=== PATIENT | female | born 1965 | race Caucasian/White ===

== ENCOUNTER 2016-11-28 17:27 | Emergency (ER) | payer BC ==
[2016-11-28 17:59] VITALS: BP 119/74
[2016-11-28] MEDS ORDERED: Acetaminophen/HYDROcodone 325-5 MG Tab PO ONE (19:14)
[2016-11-28] MEDS ORDERED: HYDROmorphone 1 MG/ML Syringe IM ONE (20:42)
--- NOTE | 2016-11-28 20:45 | EDM.PDOC ---
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 Pain is now getting worse. No further injury. Not taking anything for pain at this time. "tylenol does not work, advil upsets my stomach". The pain does radiate down the R arm clear to the wrist, pain is worse with motion RUE. Hx of 3" buldging discs" in her neck. 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 Musculoskeletal History: right radial fx and right middle finger fx, bulging disks to C4-6 and L4-6 Other Neuro History: states pinched nerve in Left shoulder Other Immunologic History: lymph node removal at back of neck - Past Surgical History Respiratory Surgical History: Reports: None Neurological Surgical History: Reports: None Musculoskeletal Surgical History: Reports: None Other Oncologic Surgeries/Procedures: breast tissue removed 1989 Social & Family History - Tobacco Use Smoking Status *Q: Current Every Day Smoker Years of Tobacco use: 38 Packs/Tins Daily: 0.5 Used Tobacco, but Quit: No Second Hand Smoke Exposure: No - Caffeine Use Caffeine Use: Reports: Coffee, Soda - Alcohol Use Days Per Week of Alcohol Use: 0 - Recreational Drug Use Recreational Drug Use: Yes Drug Use in Last 12 Months: Yes Recreational Drug Type: Reports: Marijuana/Hashish Recreational Drug Use Frequency: Daily Recreational Drug Last Use: last night Review of Systems - Review of Systems Review Of Systems: See Below Constitutional: Denies: Fever Mouth/Throat: Reports: No Symptoms Respiratory: Denies: Shortness of Breath, Pleuritic Chest Pain Cardiovascular: Denies: Chest Pain GI/Abdominal: Denies: Abdominal Pain, Vomiting Musculoskeletal: Reports: Neck Pain (patient has some chronic neck pain), Shoulder Pain, Arm Pain Skin: Reports: No Symptoms Neurological: Reports: Numbness (occasional numbness RUE) ED EXAM, GENERAL - Physical Exam Exam: See Below General Appearance: Alert, Moderate Distress, Other (very weepy at time of my exam) Head: Atraumatic. No: Facial Swelling Neck: Supple, Other (mild tenderness bilat post. base) Respiratory/Chest: No Respiratory Distress, Lungs Clear Cardiovascular: Regular Rate, Rhythm Back Exam: Other (there is tenderness of the R upper back) Extremities: Limited Range of Motion (R shoulder), Other (no visible swelling or deformity of the shoulder or elbow, pain with motion, tender anterior and posteriorly). No: Joint Swelling, Increased Warmth, Redness Neurological: No Motor/Sensory Deficits Skin Exam: Warm, Dry, Normal Color Course - Vital Signs Last Recorded V/S: Last Vital Signs Temp 97.8 F 11/28/16 17:44 Pulse 80 11/28/16 17:44 Resp 16 11/28/16 17:44 BP 119/74 11/28/16 17:44 Pulse Ox 100 11/28/16 17:44 - Orders/Labs/Meds Orders: Active Orders 24 hr Category Date Time Status Shoulder Comp Rt [CR] Stat Exams 11/28/16 19:09 Taken Meds: Medications Discontinued Medications Generic Name Dose Route Start Last Admin Trade Name Freq PRN Reason Stop Dose Admin Hydrocodone Bitart/Acetaminophen 1 tab 11/28/16 19:14 11/28/16 19:21 [place] 325-5 Mg PO 11/28/16 19:15 1 tab ONETIME ONE Administration Hydromorphone HCl 1 mg 11/28/16 20:42 11/28/16 20:49 Dilaudid IM 11/28/16 20:43 1 mg ONETIME ONE Administration - Re-Assessments/Exams Free Text/Narrative Re-Assessment/Exam: 11/28/16 21:56 X rays of the shoulder are normal. We gave her a hydrocodone intially for pain. She states that did not help, only slightly if anything. I considered giving her a 2nd hydrocodone or a percocet. She request something IM due to severity of pain, states she has not been able to sleep due to the pain. OF concern she also states she has not been taking anything for the pain for stated reasons. I have offered a course of prednisone. She does not want that , states steroids make her "go crazy". I have offer to write an order for physical therapy. She does not want that either, wants to wait until she sees Dr Kelly, Discharge instr. as documented. Departure - Departure Time of Disposition: 21:00 Disposition: Home, Self-Care 01 Condition: Fair Clinical Impression: Cervical radiculopathy Shoulder pain Qualifiers: Chronicity: chronic Laterality: right Qualified Code(s): M25.511 - Pain in right shoulder - Discharge Information Prescriptions: Naproxen [Naprosyn] 500 mg PO Q12HR #14 tablet oxyCODONE HCl/Acetaminophen [Percocet 5-325 mg Tablet] 1 each PO TID PRN #20 tablet PRN Reason: Pain Instructions: Shoulder Pain, Cervical Radiculopathy, [id number] Referrals: Sandra Fernández, [Primary Care Provider] - Forms: ED Department Discharge Additional Instructions: rest arm, no heavy lifting, alternate ice and heat to upper back and shoulder as needed, that should give some relief. Naprosyn 500 mg twice daily for pain and inflamation. You may take tylenol in addition up to 3 times daily for extra pain relief or percocet if needed for severe pain not relieved by naprosyn and tylenol. Do not take tylenol and percocet at the same time. Do not drive or work when taking percocet. See Dr Kelly as planned. - My Orders Last 24 Hours: My Active Orders 11/28/16 19:09 Shoulder Comp Rt [CR] Stat - Assessment/Plan Last 24 Hours: My Active Orders 11/28/16 19:09 Shoulder Comp Rt [CR] Stat
--- NOTE | 2016-11-29 08:38 | CR ---
Right shoulder: Three views of the right shoulder were obtained. Comparison: No previous shoulder exam. Glenohumeral joint and acromioclavicular joint appear within normal limits. No fracture, dislocation or other bony abnormality is seen. Impression: 1. No abnormality is identified on three-view right shoulder study. Diagnostic code #1
== END 2016-11-28 21:32 | disposition home or self-care (01) ==
LOC: JD.ED 17:27
DX: M54.12 Radiculopathy, cervical region (principal); M25.511 Pain in right shoulder; J44.9 Chronic obstructive pulmonary disease, unspecified; F17.210 Nicotine dependence, cigarettes, uncomplicated; Z88.6 Allergy status to analgesic agent; Z88.8 Allergy status to other drugs, medicaments and biological substances
CPT/HCPCS: 73030; 96374; 99284; A9270; J1170; 99283

== ENCOUNTER 2017-01-31 16:56 | Emergency (ER) | payer BC ==
[2017-01-31 17:09] VITALS: BP 128/76
--- NOTE | 2017-01-31 19:00 | EDM.PDOC ---
ED HPI GENERAL MEDICAL PROBLEM - General Chief Complaint: Allergic Reaction Stated Complaint: ALLERGIC REACTION TO MEDICATION Time Seen by Provider: 01/31/17 17:18 Source of Information: Reports: Patient, RN Notes Reviewed History Limitations: Reports: No Limitations - History of Present Illness INITIAL COMMENTS - FREE TEXT/NARRATIVE: The patient states that she has bilateral lower extremity peripheral neuropathy , for which she was prescribed gabapentin 300 mg TID for the past week, per Dr. Fernández. The prescription was written for the patient to increase the dose to 600 mg TID today. The patient states that she took one dose of 600 mg around 13 :00 this afternoon, then around 16:00 developed a blotchy face, itchiness, welts on her back, and a lump to her lower left leg. She called the office of Dr. Fernández around 16:30, spoke to a nurse, and was told to come to the ED. The patient states that she was experiencing "high anxiety" at the time. Here in the ED, her symptoms have completely resolved, without treatment. The patient states that she has been on Lyrica in the past, which worked well for her neuropathy, but that Dr. Fernández will not prescribe it for for her "because it's a controlled substance". The patient notes incidentally that she has been drinking a lot of water recently due to excessive thirst, and that she has been urinating a lot. She does not have a known history of diabetes. 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: Musculoskeletal History: Reports: Arthritis, Fracture (right radius, right 3rd finger), Other (See Below) (herniated disks C4-6 and L4-6) Neurological History: Reports: Neuropathy, Peripheral Psychiatric History: Reports: Anxiety, Depression - Infectious Disease History Infectious Disease History: Reports: Chicken Pox - Past Surgical History HEENT Surgical History: Reports: Oral Surgery (Dental extractions) GI Surgical History: Reports: Cholecystectomy Female Surgical History: Reports: Hysterectomy, Salpingo-Oophorectomy, Tubal Ligation Oncologic Surgical History: Reports: Biopsy of Breast (1989), Other (See Below) (Cervical lymph node biopsy) Social & Family History - Tobacco Use Smoking Status *Q: Current Every Day Smoker Years of Tobacco use: 32 Packs/Tins Daily: 0.5 Packs/Tins Daily Comment: Down from 1 ppd - Caffeine Use Caffeine Use: Reports: Coffee, Soda - Alcohol Use Alcohol Use History: No Days Per Week of Alcohol Use: 0 - Recreational Drug Use Recreational Drug Use: Yes Drug Use in Last 12 Months: Yes Recreational Drug Type: Reports: Marijuana/Hashish Recreational Drug Use Frequency: Daily - Living Situation & Occupation Living situation: Reports: (), Alone Occupation: Unemployed ED ROS ALLERGIC REACTION - Review of Systems Review Of Systems: See Below Constitutional: Reports: No Symptoms, Other (Polydipsia) HEENT: Reports: No Symptoms Respiratory: Reports: No Symptoms Cardiovascular: Reports: No Symptoms Endocrine: Reports: No Symptoms GI/Abdominal: Reports: No Symptoms : Reports: Frequency Musculoskeletal: Reports: No Symptoms Skin: Reports: No Symptoms Neurological: Reports: No Symptoms Psychiatric: Reports: No Symptoms Hematologic/Lymphatic: Reports: No Symptoms Immunologic: Reports: No Symptoms ED EXAM GENERAL NO PERIP PULSE - Physical Exam Exam: See Below Exam Limited By: No Limitations General Appearance: Alert, WD/WN, No Apparent Distress Eye Exam: Bilateral Eye: Normal Inspection Ears: Normal External Exam, Hearing Grossly Normal Nose: Normal Inspection, No Blood Throat/Mouth: Normal Inspection, Normal Lips, Normal Voice, No Airway Compromise Head: Atraumatic, Normocephalic Neck: Normal Inspection, Full Range of Motion Respiratory/Chest: No Respiratory Distress, Lungs Clear, Normal Breath Sounds, No Accessory Muscle Use Cardiovascular: Normal Peripheral Pulses, Regular Rate, Rhythm, No Gallop, No JVD, No Murmur, No Rub GI/Abdominal: Normal Bowel Sounds, Soft, Non-Tender, No Organomegaly, No Distention, No Abnormal Bruit, No Mass (Female) Exam: Deferred Rectal (Female) Exam: Deferred Back Exam: Normal Inspection, Full Range of Motion, NT Extremities: Normal Inspection, Normal Range of Motion, No Pedal Edema, Normal Capillary Refill Neurological: Alert, Oriented, Normal Cognition, No Motor/Sensory Deficits Psychiatric: Normal Affect Skin Exam: Warm, Dry, Intact, Normal Color, No Rash Course - Vital Signs Last Recorded V/S: Last Vital Signs Temp 36.9 C 01/31/17 17:04 Pulse 91 01/31/17 17:04 Resp 18 01/31/17 17:04 BP 128/76 01/31/17 17:04 Pulse Ox 100 01/31/17 17:04 - Orders/Labs/Meds Labs: Laboratory Tests 01/31/17 Range/Units 18:40 POC Glucose 85 (70-105) mg/dL - Re-Assessments/Exams Free Text/Narrative Re-Assessment/Exam: 01/31/17 18:46 Because of the patient's report of polydipsia and polyuria, an Accu-Chek was checked, and is 85. The patient is not suffering from an allergic reaction, indeed, no physical abnormalities were found on examination. Based on the patient's description of her symptoms, it sounds like she was suffering from a panic attack, and, as such , it is possible that the patient was suffering from idiopathic urticaria. I explained that allergic reactions are not dose-related. I will leave it to the patient to decide if she wants to continue taking gabapentin 300 mg TID or 600 mg TID. I explained that I am not in a position to go behind Dr. Fernández's back and prescribe Lyrica, and the patient understands that. 01/31/17 19:00 Notified by the patient's nurse that the patient did not wait for her discharge instructions. My interaction with the patient on this visit appeared to be appropriate and congenial, however, it is possible that the patient was here seeking a prescription for Lyrica, and when not offered, simply left the ED. Departure - Departure Time of Disposition: 18:48 Disposition: Eloped 07 Condition: Good Clinical Impression: Anxiety - Discharge Information Instructions: Panic Attacks, [id number] Referrals: Sandra Fernández DO [Primary Care Provider] - Forms: ED Department Discharge Additional Instructions: You were seen in the emergency room for concerns of an allergic reaction to gabapentin. On examination, no findings consistent with an allergic reaction were found. Based on your history, it is MOST LIKELY that you were suffering from some anxiety at the time. Because of your recent thirst and frequent urination, a blood sugar was checked , and found to be normal at 85. Follow-up with your PCP, Dr. Fernández, as needed. If any other problems, please do not hesitate to return to the ER.
[2017-02-13] MEDS ORDERED: Dextrose 5% in Water 1,000 ML ONE (16:06)
[2017-02-13] MEDS ORDERED: Sodium Bicarbonate 8.4% 50 MEQ/50 ML Syringe ONE (16:07)
== END 2017-01-31 19:10 | disposition left against medical advice (07) ==
LOC: JD.ED 16:56
DX: F41.9 Anxiety disorder, unspecified (principal); M19.90 Unspecified osteoarthritis, unspecified site; F17.210 Nicotine dependence, cigarettes, uncomplicated; Z88.8 Allergy status to other drugs, medicaments and biological substances; Z79.899 Other long term (current) drug therapy
CPT/HCPCS: 82962; 99282; 99283

== ENCOUNTER 2017-07-20 06:45 | Day surgery (SDC) | payer MEDICAID, OTHER ==
[~2017-07-20 06:45] MED LIST: Sodium Chloride 0.9% 10 ML Syringe FLUSH PRN
[2017-07-20] MEDS ORDERED: Propofol 200 MG/20 ML SDV ONE ×2 (07:07→08:12)
[2017-07-20] MEDS ORDERED: Midazolam 1 MG/ML 2 ML SDV ONE (07:07)
[2017-07-20] MEDS: Lidocaine 1%/Sod Bicarbonate in NS 8.4% 1 ML Syringe IDERM PRN (07:20)
[2017-07-20] MEDS: Lactated Ringers 1,000 ML IV SCH (07:20)
--- NOTE | 2017-07-20 07:20 | PCM.PREANE ---
Preanesthetic Assessment - Anesthesia/Transfusion/Family Hx Anesthesia History: Prior Anesthesia Without Reaction Family History of Anesthesia Reaction: No Transfusion History: No Prior Transfusion(s) Type of Transfusion Reactions: Reports: Unknown - Review of Systems General: No Symptoms Pulmonary: No Symptoms Cardiovascular: No Symptoms Gastrointestinal: No Symptoms Neurological: No Symptoms Other: Reports: None (60) - Physical Assessment NPO Status Date: 07/19/17 NPO Status Time: 00:00 Pulse: 60 O2 Sat by Pulse Oximetry: 98 Respiratory Rate: 16 Blood Pressure: 102/61 Temperature: 36.3 C Height: 1.73 m Weight: 73.663 kg ASA Class: 2 Mental Status: Alert & Oriented x3 Airway Class: Mallampati = 1 Dentition: Reports: Dentures Thyro-Mental Finger Breadths: 3 Mouth Opening Finger Breadths: 3 ROM/Head Extension: Limited/Partial (fussed C5-6-7) Lungs: Clear to Auscultation, Normal Respiratory Effort Cardiovascular: Regular Rate, Regular Rhythm - Allergies Allergies/Adverse Reactions: Allergies Allergy/AdvReac Type Severity Reaction Status Date / Time Antihistamines - Alkylamine Allergy Cannot Verified 07/19/17 14:58 Remember diphenhydramine Allergy Hives Verified 07/19/17 14:58 [From Benadryl] meperidine [From Demerol] Allergy Nausea and Verified 07/19/17 14:58 Vomiting aspirin AdvReac Nausea and Verified 07/19/17 14:58 Vomiting - Blood Blood Available: No Product(s) Available: None - Anesthesia Plan Pre-Op Medication Ordered: None - Acknowledgements Anesthesia Type Planned: MAC Pt an Appropriate Candidate for the Planned Anesthesia: Yes Alternatives and Risks of Anesthesia Discussed w Pt/Guardian: Yes Pt/Guardian Understands and Agrees with Anesthesia Plan: Yes PreAnesthesia Questionnaire HEENT History: Reports: Allergic Rhinitis, Glaucoma, Impaired Vision, Sinusitis , Other (See Below) Other HEENT History: wears glasses, has dentures Cardiovascular History: Reports: Heart Murmur Respiratory History: Reports: Asthma, COPD Gastrointestinal History: Reports: GERD, Hemorrhoids, Other (See Below) Other Gastrointestinal History: mucous in stools, gastric ulcer Genitourinary History: Reports: None [employer] History: Reports: , Spontaneous , Other (See Below) Other OB/BYN History: atrophic vaginitis, pelvic pain, decreased libido, Musculoskeletal History: Reports: Arthritis Other Musculoskeletal History: right radial fx and right middle finger fx, bulging disks to C4-6 and L4-6, degenerative disc disease, shoulder bursitis Neurological History: Reports: Migraines, Neuropathy, Diabetic, Seizure (1989 overdose) Other Neuro History: states pinched nerve in Left shoulder, cervical disc disorder, chronic neck pain, c spine fusion Psychiatric History: Reports: Anxiety, Depression Endocrine/Metabolic History: Reports: None Hematologic History: Reports: None Other Immunologic History: lymph node removal at back of neck Dermatologic History: Reports: None - Infectious Disease History Infectious Disease History: Reports: Chicken Pox - Past Surgical History Cardiovascular Surgical History: Reports: None Respiratory Surgical History: Reports: None GI Surgical History: Reports: Cholecystectomy Female Surgical History: Reports: Hysterectomy, Salpingo-Oophorectomy, Tubal Ligation Male Surgical History: Reports: None Endocrine Surgical History: Reports: None Neurological Surgical History: Reports: None Musculoskeletal Surgical History: Reports: None Oncologic Surgical History: Reports: Biopsy of Breast Other Oncologic Surgeries/Procedures: breast tissue removed 1989 Dermatological Surgical History: Reports: None - SUBSTANCE USE Smoking Status *Q: Former Smoker Tobacco Use Within Last Twelve Months: Cigarettes Second Hand Smoke Exposure: No Days Per Week of Alcohol Use: 0 Number of Drinks Per Day: 1 Total Drinks Per Week: 0 Recreational Drug Use History: Yes Recreational Drug Type: Reports: Marijuana/Hashish Recreational Drug Last Use: last night - HOME MEDS Home Medications: Home Meds Carisoprodol 350 mg PO TID PRN 07/19/17 [History] Desloratadine/Pseudoephedrine [Clarinex-D 12 Hour] 1 tab PO DAILY PRN 07/19/17 [ History] Pregabalin [Lyrica] 100 mg PO TID 07/19/17 [History] - CURRENT (IN HOUSE) MEDS Current Meds: Current Medications Lactated Ringer's (Ringers, Lactated) 1,000 mls @ 125 mls/hr IV ASDIRECTED JC Lidocaine/Sodium Bicarbonate (Buffered Lidocaine 1% In Ns 8.4%) 0.25 ml IDERM ONETIME PRN PRN Reason: Prior to IV Start Sodium Chloride (Saline Flush) 10 ml FLUSH ASDIRECTED PRN PRN Reason: Keep Vein Open Discontinued Medications Midazolam HCl (Versed 1 Mg/Ml) Confirm Administered Dose 2 mg .ROUTE .STK-MED ONE Stop: 07/20/17 07:08 Propofol (Diprivan 20 Ml) Confirm Administered Dose 200 mg .ROUTE .STK-MED ONE Stop: 07/20/17 07:08
--- NOTE | 2017-07-20 08:26 | PCM.OPNOTE ---
- General Post-Op/Procedure Note Date of Surgery/Procedure: 07/20/17 Operative Procedure(s): Colonoscopy with right colon transverse colon and descending colon rectal biopsies Findings: Normal grossly appearing ileum and normal grossly appearing colon and rectum Pre Op Diagnosis: Chronic diarrhea Post-Op Diagnosis: Same Anesthesia Technique: MAC, Moderate Sedation Primary Surgeon: Av Sood Pathology: Cecum right colon transverse descending and rectal biopsies EBL in mLs: 0 Complications: None Condition: Good Free Text/Narrative:: After adequate IV sedation and analgesia was obtained with monitoring the patient was placed on her left side. Perianal inspection and digital rectal examination were performed next and were unremarkable. A lubricated colonoscope was inserted into the rectum and advanced to the cecum without difficulty. Air was used as necessary for insufflation. The bowel preparation was fair. I intubated the terminal ileum which was grossly normal but was unable to biopsy this area. The cecum right colon transverse and descending colons were endoscopically normal as well but I took random biopsies in these areas is given her history for histologic review. The sigmoid was grossly normal. The rectum in both views was grossly normal as well. 2 random biopsies were taken of the rectum for review. Air was removed as I finished the procedure which she tolerated well. Catalog Librarian photographs were taken for the patient and for the medical record.
--- NOTE | 2017-07-20 08:30 | PCM48HPAN ---
Post Anesthesia Note - EVALUATION WITHIN 48HRS OF ANESTHETIC Vital Signs in Normal Range: Yes Patient Participated in Evaluation: Yes Respiratory Function Stable: Yes Airway Patent: Yes Cardiovascular Function Stable: Yes Hydration Status Stable: Yes Pain Control Satisfactory: Yes Nausea and Vomiting Control Satisfactory: Yes Mental Status Recovered: Yes Pulse Rate: 60 Resp Rate: 16 Temperature: 36.3 C Blood Pressure: 102/61 - COMMENTS/OBSERVATIONS Free Text/Narrative:: no anesthesia complications noted
[2017-07-20 08:34] VITALS: BP 106/37
== END 2017-07-20 08:56 | disposition home or self-care (01) ==
LOC: JD.SDS 06:45
PROVIDERS: ATTEND Surgery
DX: K52.9 Noninfective gastroenteritis and colitis, unspecified (principal); F41.9 Anxiety disorder, unspecified; F32.9 Major depressive disorder, single episode, unspecified; K21.9 Gastro-esophageal reflux disease without esophagitis; Z88.8 Allergy status to other drugs, medicaments and biological substances; J30.2 Other seasonal allergic rhinitis; Z79.899 Other long term (current) drug therapy; Z72.0 Tobacco use
CPT/HCPCS: 45380; J2250; J7120; 88305; J2704